=== PATIENT | female | born 1990 | race Caucasian/White ===

== ENCOUNTER → 2016-03-06 | Outpatient (REF) | payer BC | LOC: M SFHCWAGY 09:33 | PROVIDERS: ATTEND Nurse Practitioner Women's Health | DX: Z12.4 Encounter for screening for malignant neoplasm of cervix (principal) ==

== ENCOUNTER → 2017-03-20 | Outpatient (REF) | payer BC | LOC: M SFHCWAGY 14:04 | DX: Z12.4 Encounter for screening for malignant neoplasm of cervix (principal) | CPT/HCPCS: G0123 ==